=== PATIENT | female | born 1990 | race Caucasian/White ===

== ENCOUNTER 2016-08-24 18:57 | Emergency (ER) | payer MEDICAID ==
[~2016-08-24] VITALS: Ht 157.5 cm; Wt 54.6 kg
[2016-08-24 19:28] LABS: PH, VENOUS 7.345 pH (7.320-7.420)
[2016-08-24] MEDS ORDERED: SODIUM CHLORIDE FLUSH 10ML SYR IVF ONE (19:30)
[2016-08-24] MEDS ORDERED: SODIUM CHLORIDE 0.9% 1,000ML IVBOLUS ONE ×2 (19:30→20:30)
[2016-08-24] MEDS ORDERED: INSU100C5 SQ-INSULIN (19:34)
[2016-08-24] MEDS ORDERED: INSU100V8 SQ (19:35)
[2016-08-24 19:41] LABS: ASPARTATE AMINO TRANSFERASE 24 U/L (15-37); BLOOD UREA NITROGEN 19 mg/dL (7-18)
[2016-08-24 20:23] VITALS: BP 112/80
[2016-08-24] MEDS ORDERED: INSULIN SINGLE DOSE, ER SQ-INSULIN ONE (21:14)
[2016-08-24] MEDS ORDERED: INSULIN REGULAR 100 UNITS/ML, 3ML VIAL SQ-INSULIN ONE (21:30)
== END 2016-08-24 21:49 | disposition home or self-care (01) ==
LOC: ED 20:48
DX: E10.65 Type 1 diabetes mellitus with hyperglycemia (principal)
CPT/HCPCS: 36415; 80053; 81001; 82010; 82803; 82962; 85025; 87077; 87086; 87186; 96360; 96361; 96372; 99285; J1815; J7030